=== PATIENT | female | born 1940 | race Caucasian/White ===

== ENCOUNTER 2017-09-29 02:30 | Emergency (ER) | payer OTHER ==
[~2017-09-29] VITALS: Ht 157.5 cm; Wt 73.5 kg
[2017-09-29 02:35] VITALS: Ht 157.5 cm; Wt 73.5 kg
[2017-09-29 03:47] VITALS: BP 135/102
== END 2017-09-29 03:47 | disposition home or self-care (01) ==
LOC: ED 02:30
DX: N39.0 Urinary tract infection, site not specified (principal); M54.42 Lumbago with sciatica, left side; Z88.2 Allergy status to sulfonamides
CPT/HCPCS: Q0092

== ENCOUNTER 2017-10-01 04:41 | Emergency (ER) | payer OTHER ==
[~2017-10-01] VITALS: Ht 154.9 cm; Wt 72.6 kg
[2017-10-01 04:49] VITALS: Ht 154.9 cm; Wt 72.6 kg
[2017-10-01 05:58] VITALS: BP 156/92
== END 2017-10-01 05:58 | disposition home or self-care (01) ==
LOC: ED 04:41
DX: M54.32 Sciatica, left side (principal); N39.0 Urinary tract infection, site not specified; Z88.2 Allergy status to sulfonamides

== ENCOUNTER 2017-10-04 03:23 | Emergency (ER) | payer OTHER ==
[~2017-10-04] VITALS: Ht 152.4 cm; Wt 106.8 kg
[2017-10-04 03:27] VITALS: Ht 152.4 cm; Wt 106.8 kg
[2017-10-04 05:16] VITALS: BP 165/85
== END 2017-10-04 05:16 | disposition home or self-care (01) ==
LOC: ED 03:23
DX: M54.42 Lumbago with sciatica, left side (principal); N39.0 Urinary tract infection, site not specified; Z88.2 Allergy status to sulfonamides
CPT/HCPCS: J2270; J3010

== ENCOUNTER 2020-01-31 16:20 | Emergency (ER) | payer OTHER ==
[~2020-01-31] VITALS: Ht 154.9 cm; Wt 65.3 kg
[2020-01-31 16:35] VITALS: BP 116/97; Ht 154.9 cm; Wt 65.3 kg
== END 2020-01-31 17:49 | disposition home or self-care (01) ==
LOC: ED 16:20
DX: S09.8XXA Other specified injuries of head, initial encounter (principal); G89.29 Other chronic pain; Z88.2 Allergy status to sulfonamides; W22.8XXA Striking against or struck by other objects, initial encounter; Y93.89 Activity, other specified; Y92.89 Other specified places as the place of occurrence of the external cause; Y99.8 Other external cause status